=== PATIENT | male | born 1965 | race Asian ===

== ENCOUNTER 2021-08-03 19:16 | Emergency (ER) | payer MEDICAID ==
[~2021-08-03] VITALS: Ht 177.8 cm; Wt 77.1 kg
[2021-08-03 19:20] VITALS: BP_SYST 108
[2021-08-03] MEDS ORDERED: GABA-331 PO (20:36)
[2021-08-03 20:49] VITALS: BP_SYST 109
== END 2021-08-03 20:47 | disposition home or self-care (01) ==
LOC: SED 19:16
DX: K14.0 Glossitis (principal); Z76.0 Encounter for issue of repeat prescription; Z88.0 Allergy status to penicillin; Z79.899 Other long term (current) drug therapy
CPT/HCPCS: 99281

== ENCOUNTER 2022-01-15 17:57 | Emergency (ER) | payer MEDICAID ==
[~2022-01-15] VITALS: Ht 177.8 cm; Wt 77.1 kg
[~2022-01-15 17:57] MED LIST: GABA-331 PO
[2022-01-15 18:22] VITALS: BP_SYST 138
--- NOTE | 2022-01-15 18:27 | NUR ---
Patient to ER bed 05 to gown for evaluation. Side rails up. Report given to BUTCH Sun.
--- NOTE | 2022-01-15 18:50 | NUR ---
pt to ED w/ reports of SI. Pt reports plans to run into traffic and to stab himself. Difficulty assessing pt due to flight of ideas. Pt cooperative at this time. EMT at bedside, will continue to monitor.
--- NOTE | 2022-01-15 19:23 | NUR ---
report given to Sirman RAE
[2022-01-15 19:32] LABS: BASOPHILS # (AUTO) 0.1 K/uL (0.0-0.2); BASOPHILS % (AUTO) 0.8 % (0.0-2.0); EOSINOPHILS # (AUTO) 0.3 K/uL (0.0-0.4); EOSINOPHILS % (AUTO) 3.9 % (0.0-4.0); HEMATOCRIT 35.3 % (36-54); HEMOGLOBIN 12.1 g/dL (14.0-18.0); LYMPHOCYTES # (AUTO) 1.3 K/uL (1.0-5.5); MEAN CORPUSCULAR HEMOGLOBIN 31 pg (27-31); MEAN CORPUSCULAR HGB CONC 34 % (32-36); MEAN CORPUSCULAR VOLUME 90 fL (79.0-98.0); MONOCYTES # (AUTO) 0.5 K/uL (0.0-1.0); MONOCYTES % (AUTO) 7.8 % (1.7-9.3); NEUTROPHILS # (AUTO) 4.6 K/uL (1.8-7.7); NEUTROPHILS % (AUTO) 67.5 % (40.0-70.0); PLATELET COUNT (AUTO) 239 K/uL (130-430); RED BLOOD CELL COUNT(AUTO) 3.95 MIL/uL (4.2-6.2); RED CELL DISTRIBUTION WIDTH 14.4 % (9.0-15.0); WHITE BLOOD COUNT (AUTO) 6.8 K/uL (4.8-10.8)
--- NOTE | 2022-01-15 20:00 | NUR ---
RECIEVED PT RESTING IN BED ,GF BY BEDSIDE,PT IS ALERT AND ORIENTED .DENIES HEARING VOICES ,DENIES PAIN DENIES FEELING SUICIDAL.VITALS ARE WITHIN NORMAL RANGE
--- NOTE | 2022-01-15 20:00 | NUR ---
HS made aware pt SI.
[2022-01-15 20:13] LABS: ALANINE AMINOTRANSFERASE 27 U/L (12-78); ALBUMIN 3.7 g/dL (3.4-4.8); ANION GAP 11 (5-15); ASPARTATE AMINOTRANSFERASE 44 U/L (10-37); CHLORIDE 105 mmol/L (98-107); POTASSIUM 4.3 mmol/L (3.5-5.1); SODIUM SERUM 139 mmol/L (136-145); TOTAL BILIRUBIN 0.9 mg/dL (0.0-1.0); UREA NITROGEN, BLOOD 35 mg/dL (8-21)
[2022-01-15 20:19] LABS: GFR AFRICAN AMERICAN 58 mL/min (>90)
[2022-01-15 20:20] LABS: ACETAMINOPHEN < 1 ug/mL (1-30); ALCOHOL, BLOOD < 3 mg/dL (<10)
[2022-01-15 20:25] LABS: CALCIUM 8.7 mg/dL (8.4-11.0); GLUCOSE 99 mg/dL (70-99)
--- NOTE | 2022-01-15 21:00 | NUR ---
Metal wand done at the bedside by security.
--- NOTE | 2022-01-15 22:00 | NUR ---
PT RESTING QUIETLY. VITALS UPDATED
[2022-01-15 23:36] LABS: BARBITURATE, URINE NEGATIVE (NEG <=200)
[2022-01-15 23:38] LABS: METHAMPHETAMINES SCREEN,URINE POSITIVE (NEG <=500); URINE AMPHETAMINE POSITIVE (NEG <=500)
[2022-01-15 23:39] LABS: BENZODIAZEPINE, URINE POSITIVE (NEG <=150); CANNABINOID, URINE NEGATIVE (NEG <=50); COCAINE, URINE NEGATIVE (NEG <=150); PHENCYCLIDINE SCREEN,URINE NEGATIVE (NEG <=25); URINE METHADONE NEGATIVE (NEG <=200)
[2022-01-15 23:40] LABS: OPIATE, URINE NEGATIVE (NEG <=100); UR TRICYCLIC ANTIDEPRESSANTS NEGATIVE (NEG <=300); URINE OXYCODONE SCREEN NEGATIVE (NEG <=100); URINE PROPOXYPHENE SCREEN NEGATIVE (NEG <=300)
--- NOTE | 2022-01-16 | NUR ---
PT ASLEEP .NO ISSUES
--- NOTE | 2022-01-16 00:12 | NUR ---
RECIEVED PT FROM OUTGOING NURSE.AWAKE AND FALLS ASLEEP.DENIES PAIN . BY BEDSIDE .VITALS DONE AND RECORDED
--- NOTE | 2022-01-16 01:00 | NUR ---
PT APPEARS ANXIOUS .A 1:1 CLOSE OBSERVATION IN PROGRESS
--- NOTE | 2022-01-16 03:00 | NUR ---
HAD A BM AND VOIDED 200 MLS URINE.
--- NOTE | 2022-01-16 06:00 | NUR ---
VITALS DONE BPS 122/65 HR 70 [id number] RR 18 [id number]
[2022-01-16] MEDS ORDERED: BICT1TAB PO (09:22)
[2022-01-16] MEDS ORDERED: GABA-331 PO (09:28)
[2022-01-16] MEDS ORDERED: OXYB15TA3 PO (09:28)
[2022-01-16] MEDS ORDERED: DULO20CA PO (09:28)
[2022-01-16] MEDS ORDERED: ALLO100T PO (09:28)
--- NOTE | 2022-01-16 11:05 | NUR ---
PT DENIES ANY AUDITORY HALLUCINATIONS, DENIES ANY VISUAL HALLUCINATIONS. PT HAS BEEN CONVERSING ABOUT HIS LOVE OF PLANTS AND WANTING TO SPEAK TO A RETAIL MARKETING SPECIALIST REGARDING REHAB.
--- NOTE | 2022-01-16 11:13 | NUR ---
DR FRIEDMAN AT PT BEDSIDE. PT DENIES ANY SI TO DR FRIEDMAN
--- NOTE | 2022-01-16 11:27 | NUR ---
MASTER OCEAN YACHT AT PT BEDSIDE
--- NOTE | 2022-01-16 11:30 | NUR ---
TUNGSTEN REFINER ACSW Montserrat met with patient at bedside in ED due to patient being in ED for SI. ACSW completed introductions, reason for referral, provided business card and patient was open to contact. Current concern- Patient presented to ED with SI. Review of notes show patient expressed wanting to run into traffic and/or stab himself. Mental Health history- Patient disclosed history of untreated Schizophrenia and Anxiety. According to patient, he was diagnosed about 10 years ago. He reports auditory and visual hallucinations including seeing faces and heads floating. SI/HI- Patient denies current SI. He disclosed 2 prior attempts with last one being 10 years ago by cutting his wrists. Substance Abuse- Patient disclosed meth use. He shared he has cut down. He last smoked meth yesterday and according to patient this exacerbates Schizophrenia symptoms. Social- Patient resides in an apartment with 3 roommates. He disclosed roommates are aware of his mental health issues and periodic drug use. He shares he uses meth when engaging in sexual activity. Patient currently receives SSI due to a 4 story fall. ACSW utilized elements of Cognitive Behavioral and Dialectical Behavioral Therapy Techniques, as appropriate for ED encounter, to support patient with recognizing connection of his behavior, triggers, actions/risky behaviors, outcomes. ACSW also utilized elements of harm-reduction techniques to briefly explore reduction in meth use and risky sexual behavior. ACSW discussed the connection/impacts of physical health, mental health, and substance abuse and encouraged patient to follow-up with Psychiatrist and include regular psychotherapy into his plan. ACSW provided the following resources: -Substance Abuse Resource Packet -988 Suicide Crisis Flyer (formally National Suicide Prevention number) -[facility] -Behavioral Health Resource Packet ACSW will continue to be available as needed.
[2022-01-16] MEDS: GABAPENTIN 300 MG CAPSULE PO ONE (11:39)
[2022-01-16] MEDS: LISINOPRIL 10 MG TABLET (PRINIVIL) PO ONE (11:46)
--- NOTE | 2022-01-16 11:47 | NUR ---
PT HAVING CONSULT WITH SYCHIATRIST VIA TELE
--- NOTE | 2022-01-16 12:00 | NUR ---
INSTRUCTIONAL SERVICES SPECIALIST AT PT BEDSIDE
--- NOTE | 2022-01-16 12:05 | NUR ---
SENT TO [facility] TO TAKE BED 4 PT BRIAN TSAI TO FLOOR ([facility])
--- NOTE | 2022-01-16 13:03 | NUR ---
Patient given written and verbal discharge instructions and verbalizes understanding. ER DR ELDER QUINTERO discussed with patient the results and treatment provided. Patient in stable condition. ID arm band removed. NO RX given. Pain Scale [0]. Opportunity for questions provided and answered. Medication side effect fact sheet provided.
[2022-01-16 13:10] VITALS: BP_SYST 141
== END 2022-01-16 13:10 | disposition home or self-care (01) ==
LOC: SED 17:57
DX: R45.851 Suicidal ideations (principal); N18.9 Chronic kidney disease, unspecified; Z88.0 Allergy status to penicillin; Z91.013 Allergy to seafood; Z79.899 Other long term (current) drug therapy; Z20.822 Contact with and (suspected) exposure to COVID-19
CPT/HCPCS: 99285; 87426; 80307; 80053; 85025; 36415; 93005; G0482; G0480; G0481

== ENCOUNTER 2022-07-19 17:44 | Emergency (ER) | payer MEDICAID ==
[~2022-07-19] VITALS: Ht 175.3 cm; Wt 77.1 kg
[~2022-07-19 17:44] MED LIST changes: +ALLO100T PO; +BICT1TAB PO; +DULO20CA PO; +OXYB15TA3 PO
[2022-07-19 17:52] VITALS: BP_SYST 165
[2022-07-19] MEDS ORDERED: OXYB5TAB16 PO (18:14)
[2022-07-19] MEDS ORDERED: LOSA25TA3 PO (18:14)
[2022-07-19] MEDS ORDERED: CYM30 PO (18:14)
[2022-07-19] MEDS ORDERED: GABA-331 PO (18:14)
[2022-07-19] MEDS ORDERED: ALLO100T PO (18:18)
[2022-07-19] MEDS ORDERED: TOPXL100 PO (18:18)
[2022-07-19 18:21] VITALS: BP_SYST 165
== END 2022-07-19 18:21 | disposition home or self-care (01) ==
LOC: SED 17:44
DX: Z76.0 Encounter for issue of repeat prescription (principal); Z88.0 Allergy status to penicillin; Z91.013 Allergy to seafood; Z79.899 Other long term (current) drug therapy
CPT/HCPCS: 99281